=== PATIENT | male | born 1975 | race Caucasian/White ===

== ENCOUNTER → 2018-12-29 16:03 | Outpatient (CLI) | payer OTHER, SELFPAY ==
[2016-06-06 02:11] VITALS: BMI 31.0
== END ==
PROVIDERS: Family Provider Family Medicine; PCP Family Medicine; Referring Provider Otolaryngology; Visit Provider Otolaryngology
DX: J03.00 Acute streptococcal tonsillitis, unspecified (principal)
CPT/HCPCS: 87070

== ENCOUNTER → 2020-06-07 | Outpatient (CLI) | payer BC, SELFPAY ==
[2016-06-06 02:11] VITALS: BMI 31.0
--- NOTE | 2020-06-07 15:14 | RAD_ITS ---
STUDY: X-RAY - ABDOMEN/PELVIS REASON FOR EXAM: Male, 44 years old patient with abdominal pain and history of kidney stones . TECHNIQUE: Two AP supine views of the abdomen and pelvis. COMPARISON: CT of the abdomen and pelvis dated June 18, 2016. FINDINGS: Normal visualized lung bases. There is no obvious organomegaly, mass, dilated bowel or pathologic calcifications. Normal soft tissue structures. Normal visualized osseous structures. RAD/Abdomen Single View IMPRESSION: No radiographic evidence of acute intra-abdominal disease. Electronically Signed: Henny Park MD at 8:29 EDT , Service support ,
== END | disposition home or self-care (01) ==
LOC: RAD 15:12
PROVIDERS: PCP Family Medicine; Referring Provider Urology; Visit Provider Urology
DX: N20.0 Calculus of kidney (principal)
CPT/HCPCS: 74018